=== PATIENT | male | born 1960 | race Two or more races ===

== ENCOUNTER → 2024-04-14 | Emergency (ER) | payer OTHER ==
[~2024-04-14] VITALS: Ht 175.3 cm; Wt 77.1 kg
[~2024-04-14] MED LIST: CEFTRIAXONE SODIUM 1,000 MG VIAL IM STA; KETOROLAC TROMETHAMINE 30 MG VIAL IM STA
[2024-04-14 14:09] LABS: HEMOGLOBIN 15.5 g/dL (13-16.00); MEAN CELL VOLUME 95.1 fL (80.0-100.00); MEAN CORPUSCULAR HEMOGLOBIN 32.7 pg (27.00-32.0); MEAN CORPUSCULAR HGB CONC 34.4 g/dl (32.0-36.0); PLATELET COUNT 294 K/uL (150-450); RED BLOOD COUNT 4.73 M/uL (4.00-6.00); RED CELL DISTRIBUTION WIDTH 14.1 % (11.5-14.5)
[2024-04-14 14:46] LABS: CALCIUM 10.4 mg/dL (8.5-10.1); GFR 75.23; POTASSIUM 4.73 mEq/L (3.5-5.1)
[2024-04-14 15:04] LABS: URIC ACID 3.3 mg/dL (3.5-8.5)
== END | disposition home or self-care (01) ==
LOC: ER 10:07
PROVIDERS: General Practice
DX: L03.113 Cellulitis of right upper limb (principal)